=== PATIENT | female | born 1945 | race Caucasian/White ===

== ENCOUNTER 2025-02-14 21:17 | Inpatient (IN) | payer MEDICARE, SELFPAY ==
[2025-02-14 11:19] VITALS: BP 142/79
[2025-02-14 11:43] LABS: Hematocrit 42.5 % (37.0-47.0); Hemoglobin 14.2 g/dL (12.0-16.0); Mean Corp Hgb Conc. 33.4 g/dL (33.0-37.0); Mean Corpuscular Volume 91.8 fL (81.0-99.0); Nucleated Red Blood Cells % 0 %; Platelet Count 148 10^3/uL (130-400); Red Cell Dist. Width 13.8 % (11.5-14.5)
[2025-02-14 12:03] LABS: ALT (SGPT) 17 U/L (0-35); AST (SGOT) 20 U/L (14-36); Albumin 4.2 g/dl (3.5-5.0); Alkaline Phosphatase 55 U/L (38-126); Blood Urea Nitrogen 13 mg/dl (7-17); Calcium 9.2 mg/dl (8.4-10.2); Carbon Dioxide 26 mmol/L (22-30); Chloride 104 mmol/L (98-107); Glucose 139 mg/dl (70-99); Lipase 58 U/L (23-300); Potassium 4.0 mmol/L (3.5-5.1); Sodium 137 mmol/L (135-145); Total Protein 6.9 g/dl (6.3-8.2); eGFR > 60.00
[2025-02-14 14:15] VITALS: BP 116/75
[2025-02-14 15:41] VITALS: BMI 20.7
[2025-02-14] MEDS: OMNIPAQUE 50 ML PO (16:21)
[2025-02-14 18:25] VITALS: BP 133/86
[2025-02-14 18:29] LABS: Urine Character Clear (Clear)
[2025-02-14 18:34] LABS: Urine Squamous Cell 0-2 /LPF (Few)
[2025-02-14 18:35] LABS: Urine Red Blood Cell 0-2 /HPF (0-2)
--- NOTE | 2025-02-14 19:13 | ED.GENMED ---
History of Present Illness
General
Chief Complaint: Abdominal Pain
Source: patient
Exam Limitations: none
Time Seen by Provider: 02/14/25 15:22
Nursing documentation reviewed up to this point in time: agreed with
History of Present Illness
History of Present Illness:
80-year-old female presenting to the emergency department today with concerns of diffuse abdominal pain worsening over the past 24 hours or so maximal to the left side. Did have some nausea vomiting as well as diarrhea. Has had chills no fevers.
Denies any chest pain shortness of breath.
Review of Systems
Review of Systems
Allergies reviewed?: Yes
All Other Systems: ROS reviewed and negative except as documented in HPI and ROS
Phy Exam
Physical Exam
Physical Exam:
GENERAL: Alert , in no apparent distress
EYE: pupils equal and reactive
NECK: Supple, no significant adenopathy.
ENT: o/p clr, mmm.
CARDIAC: Regular rate and rhythm .
LUNGS: Clear breath sounds bilaterally, no acute respiratory distress, no wheezes/rales/rhonchi
ABDOMEN: Abdominal pain to palpation throughout the left side of the abdomen.
NEUROLOGICAL: Alert and oriented, no focal neuro deficits
SKIN: Warm and dry, skin intact.
MUSCULOSKELETAL: No edema, well perfused.
PSYCH: Normal and appropriate interaction.
Course
Orders/Labs/Results
Orders:
Orders
02/14/25 11:34
Complete Blood Count/With Diff Urgent
Comprehensive Metabolic Panel Urgent
Lipase Urgent
02/14/25 16:05
CT Abd/pel W Iv And Oral Contr Urgent
Comment:
Reason For Exam: llq pain
Iohexol [Omnipaque] See Protocol PO NOW STA
02/14/25 18:20
Urinalysis Reflex To Culture Urgent
Date Specimen was Collected: 02/14/25
Time Specimen was Collected: 18:18
Urine Microscopic Reflex Cult Urgent
Urine Culture Urgent
VENECIA Source: U
Specimen Description:
Date Specimen was Collected: 02/14/25
Time Specimen was Collected: 18:18
02/14/25 20:16
NSS 500mL Bolus over 30 minutes 0.9% Sodium Chloride 500 ml [Nss] 500 ml IV BOLUS
Zosyn 3.375 grams IVPB NOW Piperacillin/Tazo 3.375 Gram [Zosyn] 3.375 gram in 50 ml IV NOW
Abnormal Lab Results
02/14/25 02/14/25
11:34 18:20
WBC 11.0 H 10^3/uL
(4.8-10.8)
Absolute Neuts (auto) 10.3 H 10^3/uL
(1.4-6.5)
Absolute Lymphs (auto) 0.4 L 10^3/uL
(1.2-3.4)
Neutrophils % 93.3 H %
(42.2-75.2)
Lymphocytes % 3.6 L %
(20.5-51.1)
Glucose 139 H mg/dl
(70-99)
Urine Ketones 1+ A
(Negative)
Ur Occult Blood Reflex 1+ A
(Negative)
Urine Bacteria (Reflex) Many A
(Negative)
Urine Albumin (Reflex) 1+ A
(Neg - Trace)
02/14/25 11:34
02/14/25 11:34
Vital Signs
Initial and Last Documented VS:
Initial Vital Signs
Temp Pulse Resp BP Pulse Ox
99.3 F 106 16 142/79 97
02/14/25 11:19 02/14/25 11:19 02/14/25 11:19 02/14/25 11:19 02/14/25 11:19
Last Documented Vital Signs
Temp Pulse Resp BP Pulse Ox
98.7 F 85 16 133/86 96
02/14/25 19:53 02/14/25 18:25 02/14/25 18:25 02/14/25 18:25 02/14/25 19:15
MDM/Problems Addressed
MDM/Problems Addressed:
80 presenting to the emergency department today with concerns of left-sided abdominal pain worsening over the past day or so. Associated nausea diarrhea. On arrival mildly tachycardic otherwise vital signs are normal. Slight white count of 11.0
otherwise labs unremarkable. Urinalysis without evidence of infection. CT scan obtained showing contained perforation of descending colon diverticulitis. Otherwise patient here in no distress vital signs normal throughout stay plan to admit for
monitoring and IV antibiotics.
*Pulse Oximetry
SaO2: 96
Oxygen Mode of Delivery: Room air
Patient hypoxic: no (96)
*Critical Care Note
Total Time (30-74mins, 75-104mins- exclusive of procedures): Not Applicable
ED Attending Note
-
Portions of this chart may have been created with voice recognition software.� Occasional wrong word or��sound alike� substitutions may have occurred due to the inherent limitations of voice recognition software.
Discharge Plan
Departure
Patient Disposition: Home (Routine Discharge)
Date of Disposition: 02/14/25
Time of Disposition: 20:16
Admit to: Med/Surg
Admit to doctor: Debbie
Patient with high blood pressure during this ER visit?: No
Condition: Good
Covid-19: Not Applicable
Discharge Problem:
Diverticulitis of descending colon
Referrals:
NONE,* [Family Provider, Internal Medicine]
Interventions
Interventions:
*Risk Screen - Suicide Last Done: 02/14/25 11:19
*General Assessment Last Done: 02/14/25 15:46
*Neglect/Abuse Screening Last Done: 02/14/25 15:46
*ED COVID-19 Vaccine History Last Done: 02/14/25 15:46
DR-Jbmhll-Oxflczmcsv Assessment Last Done: 02/14/25 19:55
Discharge Date and Time
Print Language: KAZAKH
[2025-02-14] MEDS: ZOSYN 50 IV (20:43)
[2025-02-14] MEDS: NSS 500 IV (20:43)
--- NOTE | 2025-02-14 20:46 | HPS.HSE ---
Family Physician
-
Family Physician: * NONE
Chief Complaint
-
Abdominal pain
History of Present Illness
This is an 80-year-old female with no known segment past medical history presenting to the Emergency Department with abdominal pain.
Patient reports diffuse abdominal pain over the last 24 hours more intense on the left side without any radiation. She has nausea vomiting as well as nonbloody diarrhea. She has had chills but no fevers. She denies any rash. She denies any
urinary symptoms. She denies any cough or shortness of breath. She denies any chest pain.
In the emergency department she remains afebrile with a temp of 98.7, blood pressure was 133/80 with a pulse of 83 and she was satting 90% on room air.
White count was 11 hemoglobin 14.2 with a normal platelet count. Electrolytes BUN/creatinine were all normal. LFTs and lipase were unremarkable.
CT findings compatible with diverticulitis involving the descending colon. There is evidence for associated contained perforation with small contained foci of extraluminal air. No evidence for free intraperitoneal air underneath the hemidiaphragms.
There is no evidence for abscess.
Medical History
Past Medical History
Past Medical History: Reports None and Other
Past Surgical History: Reports Other (rectal/anal biopsy for cancer)
Social History
Tobacco: Non-smoker
Alcohol: Occasional
Drug: None
Employment: Not Employed
Family History
Family History: Not pertinent
Allergies / Home Medications
Allergies reflects when Allergies were last updated in [employer].
Home Medications with original date entered in [employer]
Allergy/Medication List:
Allergies
Allergy/AdvReac Type Severity Reaction Status Date / Time
azithromycin Allergy looses Verified 02/14/25 11:25
motor
control
Latex, Natural Rubber Allergy Rash Verified 02/14/25 11:25
environmental Allergy nasal Uncoded 02/14/25 11:25
symptoms
Review of Systems
-
Constitutional: Reports No Symptoms
EENT: Reports No Symptoms
Respiratory: Reports No Symptoms
Cardiac: Reports No Symptoms
Abdomen/GI: Reports Abdominal Pain, Nausea, Vomiting and Diarrhea
: Reports No Symptoms
Musculoskeletal: Reports No Symptoms
Skin: Reports No Symptoms
Neurological: Reports No Symptoms
Endocrine: Reports No Symptoms
Hematologic/Lymphatic: Reports No Symptoms
Psych: Reports No Symptoms
Physical Exam
Vital Signs
Vital Signs
Temp Pulse Resp BP Pulse Ox
98.7 F 85 16 133/86 96
02/14/25 19:53 02/14/25 18:25 02/14/25 18:25 02/14/25 18:25 02/14/25 19:15
Physical Exam
General: Well Developed, Well Nourished and No Apparent Distress
HEENT: NormoCephalic, Moist mucous membranes and Atraumatic
Respiratory: Clear
Cardiac: S1/S2 and Regular Rhythm; No Murmur or Rub
GI: Soft, Non Distended and Normal Bowel Sounds; No Organomegaly
Rectal: Deferred by Provider
Musculoskeletal: No Clubbing, No Cyanosis and No Edema
Skin: No Rash
Neuro: Nonfocal/grossly intact
Hematologic/Lymphatic: No Lymphadenopathy
Psych: Calm
Laboratory Results
-
02/14/25 11:34
02/14/25 11:34
Laboratory Results
Total Bilirubin 1.2 mg/dl (0.2-1.3) 02/14/25 11:34
AST 20 U/L (14-36) 02/14/25 11:34
ALT 17 U/L (0-35) 02/14/25 11:34
Alkaline Phosphatase 55 U/L (38-126) 02/14/25 11:34
Lipase 58 U/L (23-300) 02/14/25 11:34
Data Reviewed
-
CT Scan: Report Reviewed by me
Lab Data: Labs Reviewed by me
Old Records: Reviewed
Impression/Plan
-
IMPRESSION:
80-year-old female presenting with abdominal pain x 1 day and found to have complicated diverticulitis with contained perforation and abscess. No intra-abdominal free here but there is a extraluminal gas. She is hemodynamically stable and
afebrile. Abdominal exam shows nonrigid abdomen without rebound or guarding at this time.
PLAN:
Acute complicated diverticulitis of the descending colon
-Admit to MedSurg
-N.p.o.
-Pain control, antiemetics and IV fluids
-IV Zosyn
-Blood cultures afebrile
-Surgery consulted and aware will follow
DVT prophylaxis�Lovenox subcu
CODE STATUS�full code
[2025-02-14 22:42] VITALS: BP 125/76; BMI 19.9
[2025-02-14] MEDS: D5LR 1000 IV (22:49)
[2025-02-14 23:04] VITALS: BP 125/76
--- NOTE | 2025-02-14 23:26 | PTCARENOTE ---
Pt arrived from ED on stretcher at 2215, patient walked to the bed w/o assistance-gait steady. Patient updated on care plan & made aware of plan for tonight. AAOx3, follows all commands & pleasant. IV fluids started, pt made aware to call for
assistance prior to ambulating. Bed in lowest position & locked. Call murrieta within reach.
[2025-02-15] MEDS: ZOSYN 50 IV ×4 (01:18→19:43)
[2025-02-15 07:00] VITALS: BP 115/62
[2025-02-15 08:12] LABS: Hematocrit 37.6 % (37.0-47.0); Hemoglobin 12.8 g/dL (12.0-16.0); Mean Corp Hgb Conc. 34.0 g/dL (33.0-37.0); Mean Corpuscular Volume 91.0 fL (81.0-99.0); Platelet Count 132 10^3/uL (130-400); Red Cell Dist. Width 13.7 % (11.5-14.5)
[2025-02-15 08:34] LABS: Blood Urea Nitrogen 9 mg/dl (7-17); Calcium 8.6 mg/dl (8.4-10.2); Carbon Dioxide 26 mmol/L (22-30); Chloride 105 mmol/L (98-107); Estimated Creatinine Clearance 68 ml/min; Glucose 112 mg/dl (70-99); Magnesium 2.0 mg/dl (1.6-2.3); Potassium 3.7 mmol/L (3.5-5.1); Sodium 135 mmol/L (135-145); eGFR > 60.00
--- NOTE | 2025-02-15 09:41 | CON.GS ---
Addendum entered and electronically signed by Nigel De Souza MD 02/15/25 10:20:
Patient seen and examined with surgical PRODUCTION SANITIZER. Agree with documented consultation note consistent with my simultaneous evaluation.
HPI: 80-year-old female known history of diverticulosis and up-to-date on colonoscopy who developed the acute onset of left lower quadrant and suprapubic abdominal pain 2 days ago. Persistent symptoms yesterday prompting emergency department
evaluation. She resides in [place] for months at a time and just returned a few days ago but she is not aware of any specific sick contacts while there but states that she did not eat good food in the airport in [place]. She does have a previous
history of infectious enterocolitis in the past but the symptoms are different other than the diarrhea and loose stools which persist.
AFVSS
NAD AAO x 3, resting comfortably in hospital bed, pleasant and participatory for history taking
ABD: Soft, slightly distended, tenderness to palpation with localized rebound/guarding in the left lower quadrant and suprapubic area.
CT abdomen/pelvis imaging personally reviewed as well as radiologist report. There is rather significant diverticulosis affecting the sigmoid and descending colon. One of the diverticulum at the region of the distal descending colon as
inflammatory changes and a few small flecks of extraluminal air adjacent to it in the retroperitoneal tissue plane. No fluid collections. No significant free fluid. No remote extraluminal air.
Assessment/plan: 80-year-old female with descending colon diverticulitis and resultant contained localized microperforation; localized peritonitis on examination but no generalized peritonitis. No signs of sepsis.
Given clinical stability we discussed indications for nonoperative management with bowel rest, IV fluid hydration and empiric antibiotics
Clear liquids are okay for comfort
Will also check stool studies given patient's travel history
Will follow
Original Note:
Consultation
-
Date/Time Consultation Performed: 02/15/25 [id number]
Performing Provider: Phill De Souza
Medical History
-
Chief Complaint: Abdominal pain
History of Present Illness:
Ms Golden is an 80 yo female with h/o diverticulosis without prior diverticulitis and prior benign rectal biopsy with last colonoscopy about one year ago who presents with diarrhea and abdominal pain. She was recently living in [place] and returned
this week. She reports feeling quite well until about 2 days ago when she began to have abdominal pain predominantly to the lower left abdomen with nausea, vomiting and nonbloody diarrhea. She denies fevers or chills. Her symptoms persisted causing
her to present yesterday evening through the ED for evaluation. On exam, she has bllq tenderness which is worse on the left side with distention present. She continues to have loose stools but does note the nausea is resolved and the pain is
improved from last night.
Past Medical History
Past Medical History: Other (diverticulosis)
Past Surgical History: Other (last colonoscopy 1 year ago, prior benign rectal biopsy)
Social History
Tobacco: Non-Smoker
Alcohol: Occasional
Family History
Family History: Reviewed & Not Pertinent
Allergies / Home Medications
Allergy/AdvReac Type Severity Reaction Status Date / Time
azithromycin Allergy looses Verified 02/14/25 11:25
motor
control
Latex, Natural Rubber Allergy Rash Verified 02/14/25 11:25
pollen extracts Allergy ENVIRONMENTAL-NASAL Verified 02/14/25 22:01
SYMPTOMS
Review of Systems
-
History Source: Patient
All other systems: Negative unless noted
A 10 point review of systems was completed, and was negative except as per HPI.
Physical Exam
Vital Signs
Temp Pulse Resp BP Pulse Ox
98.5 F 70 17 115/62 98
02/15/25 07:00 02/15/25 07:00 02/15/25 07:00 02/15/25 07:00 02/15/25 07:00
02/14/25 02/15/25 02/16/25
06:59 06:59 06:59
Actual Weight 57.516 kg
Body Mass Index (BMI) 19.9
Lab Results
02/15/25 07:32
02/15/25 07:32
WBC 10.2 10^3/uL (4.8-10.8) 02/15/25 07:32
Hgb 12.8 g/dL (12.0-16.0) 02/15/25 07:32
Hct 37.6 % (37.0-47.0) 02/15/25 07:32
Plt Count 132 10^3/uL (130-400) 02/15/25 07:32
Abs Immat Gran (auto) 0.0 10^3/uL (0-0.05) 02/14/25 11:34
Neutrophils % 93.3 % (42.2-75.2) H 02/14/25 11:34
Physical Exam
General: Well Developed and Well Nourished
HEENT: Moist Mucous Membranes
Respiratory: Non Labored Respirations
GI: Soft, Tender (BLLQ L>R) and Distended (mild)
Skin: Warm and Dry
Neuro: Awake, Alert and AO x 3
Psych: Calm
Assessment / Plan
-
80 yo female who presents with abdominal pain and diarrhea with CT imaging with suspected diverticulitis of the descending colon with contained microperforation and no abscess, reactive small bowel inflammation noted. Localized peritonitis on exam.
This is her first diverticulitis episode. Afebrile with stable vital signs. Mild leukocytosis on presentation which has resolved. She reports pain has improved since admission.
Plan:
Clear liquids as tolerated
Continue IVF
Continue IV Zosyn
Analgesics/antiemetics prn
Given recent travel and significant diarrhea, will send stool cx. C-diff pending
Lovenox for VTE ppx
No plans for emergent surgery at this time, will follow for continued improvement with abx, bowel rest and supportive therapies
--- NOTE | 2025-02-15 12:43 | W.PN.HOSP.TC ---
Today's Communication/Plan
-
Assessment / Plan
Assessment / Plan
General: No Apparent Distress, Comfortable and Conversant
HEENT: NormoCephalic, Moist mucous membranes, Atraumatic
Respiratory: Clear and Non Labored Respirations
Cardiac: S1/S2 and Regular Rhythm; No Rub or Gallop
GI: Soft, Non Tender, Non Distended and Normal Bowel Sounds
Musculoskeletal: No Edema, no deformity
Skin: Warm and dry
: NO Llamas
Neuro: Awake, Alert, Nonfocal/grossly intact
Psych: Calm and Intact Judgment/Insight
Ms. Golden is an 80-year-old female with no significant medical history who presented with abdominal pain. She was found to have diverticulitis of her descending colon with evidence of microperforation which appears contained with no evidence of
abscess formation or free air. She was started on antibiotics with Zosyn and admitted for further evaluation and management.
Acute diverticulitis:
- With microperforation, no abscess formation or free air
- Continue antibiotics with Zosyn
- Clinically improving, remains normotensive and afebrile
- No current plans for surgical intervention
- Will monitor clinically with guidance from surgical team
- Pain control as needed
- Clear liquid diet for now
- Checking stool studies considering patient's recent travel to [place]
DVT prophylaxis: Lovenox
CODE STATUS: Full code
Total time spent on today's encounter was 45 minutes
Anticipated Discharge: > 48 hours
Subjective/Interval History
-
Date of Service: February 15, 2025
Patient was seen and examined at bedside this morning. Abdominal pain is improving. She remains on antibiotics. No current plans for surgical intervention.
Objective Data
-
Labs:
Laboratory Results
02/15/25
07:32
WBC 10.2
Hgb 12.8
Hct 37.6
Plt Count 132
Sodium 135
Potassium 3.7
Chloride 105
Carbon Dioxide 26
BUN 9
Creatinine 0.5 L
Glucose 112 H
Calcium 8.6
Vital Signs:
Vital Signs
Temp Pulse Resp BP Pulse Ox
98.5 F 70 17 115/62 98
02/15/25 07:00 02/15/25 07:00 02/15/25 07:00 02/15/25 07:00 02/15/25 07:00
Review of Systems
-
History Source: Patient
All other systems: Reviewed and negative
Abdomen/GI: Reports Abdominal Pain
Physical Exam
-
General: No Apparent Distress
[2025-02-15] MEDS: D5LR 1000 IV (15:10)
[2025-02-15 15:28] VITALS: BP 138/73
[2025-02-15] MEDS: LOVENOX 40 MG SC (18:21)
[2025-02-15 21:27] LABS: Hepatitis C Antibody Negative (Negative)
[2025-02-15 23:14] VITALS: BP 126/68
[2025-02-16] MEDS: ZOSYN 50 IV ×4 (02:49→20:15)
[2025-02-16] MEDS: D5LR 1000 IV (06:14)
[2025-02-16 07:17] VITALS: BP 136/77
--- NOTE | 2025-02-16 08:57 | W.PN.GS2 ---
Addendum entered and electronically signed by Nigel De Souza MD 02/16/25 09:14:
Patient seen and examined with surgical BEAUTY CULTURIST APPRENTICE. Agree with documented progress note.
Overall feels better than initial presentation but still with some persistent cramps and discomfort in the suprapubic and left lower quadrant.
Pain was a bit exacerbated with diarrhea overnight but she also has not utilized any pain medication including Tylenol
AFVSS
NAD AAO x 3, resting comfortably in hospital bed
ABD: Soft, nondistended, localizing tenderness palpation left lower quadrant and lower abdomen with some localized voluntary guarding
Stool studies pending (negative C. difficile no WBCs)
A.m. labs pending
Assessment/plan: Descending colon diverticulitis with contained localized microperforation
Clinically stable with no worsening pain although not significantly improved compared to yesterday
Trial on full liquid diet
Continue Zosyn
Await a.m. labs and stool culture results
Original Note:
Today's Communication / Plan
-
Full liquids
Assessment / Plan
-
80 yo female presenting with diverticulitis of the descending colon and resultant contained localized microperforation.
AFVSS
Labs for today pending, WBC normalized yesterday
Tolerating clears without increase in pain, diarrhea persists.
Stool negative for c-diff, no WBC's; other cx pending
Plan:
Advance to FLD
Follow stool cx
C/W IV zosyn
Analgesics as needed, currently declining
IVF as per primary team
Lovenox for VTE ppx
Subjective Data
-
Date of Service: February 16, 2025
Pt seen and examined at bedside with Dr. De Souza. Pain to lower pelvis and llq. Declining pain meds. Denies n/v. Tolerating clears. Passing watery, loose stools every 2 hours or so.
Objective Data
-
Intake and Output
02/15/25 02/16/25 02/17/25
06:59 06:59 06:59
Intake Total 2640 / 2640
Output Total 100 / 100
Balance 2540 / 2540
Intake:
Oral fluids 2540 / 2540
IV piggybacks 100 / 100
Output:
Liquid stool amount 100 / 100
Rectum 100 / 100
Other:
Number of approximated MODERATE 1 3
amounts of urine
Number of approximated LARGE 6
amounts of urine
Number of unmeasured liquid
stools
Rectum 1 4
Vital Signs
Temp Pulse Resp BP Pulse Ox
98.1 F 74 16 136/77 97
02/16/25 07:17 02/16/25 07:17 02/16/25 07:17 02/16/25 07:17 02/16/25 07:17
Calcium 8.6 mg/dl (8.4-10.2) 02/15/25 07:32
Magnesium 2.0 mg/dl (1.6-2.3) 02/15/25 07:32
Total Bilirubin 1.2 mg/dl (0.2-1.3) 02/14/25 11:34
AST 20 U/L (14-36) 02/14/25 11:34
ALT 17 U/L (0-35) 02/14/25 11:34
Alkaline Phosphatase 55 U/L (38-126) 02/14/25 11:34
Total Protein 6.9 g/dl (6.3-8.2) 02/14/25 11:34
Albumin 4.2 g/dl (3.5-5.0) 02/14/25 11:34
Physical Exam
-
NAD
ABD soft, tender to LLQ and suprapubic area with localized voluntary guarding, ND
--- NOTE | 2025-02-16 10:51 | CM ---
Reviewed the chart notes and spoke with the patient at the bedside. The patient is currently residing with a friend in a two story home with two steps to enter. Main residence is in [place]. The patient reports no DME/VN/SNF. The patient confirmed
pharmacy while in this area is [facility]. Patient's diet is full liquid. CM continues to be available to patient/family and is monitoring medical plan for needs at discharge.
Plan: Discharge plans will depend on the patient's progress.
[2025-02-16 11:03] LABS: Hematocrit 36.7 % (37.0-47.0); Hemoglobin 12.3 g/dL (12.0-16.0); Mean Corp Hgb Conc. 33.5 g/dL (33.0-37.0); Mean Corpuscular Volume 91.1 fL (81.0-99.0); Nucleated Red Blood Cells % 0 %; Platelet Count 135 10^3/uL (130-400); Red Cell Dist. Width 13.5 % (11.5-14.5)
[2025-02-16 11:14] LABS: Blood Urea Nitrogen 4 mg/dl (7-17); Calcium 8.9 mg/dl (8.4-10.2); Carbon Dioxide 24 mmol/L (22-30); Chloride 103 mmol/L (98-107); Estimated Creatinine Clearance 68 ml/min; Glucose 137 mg/dl (70-99); Potassium 3.4 mmol/L (3.5-5.1); Sodium 133 mmol/L (135-145); eGFR > 60.00
--- NOTE | 2025-02-16 11:46 | W.PN.HOSP.TC ---
Today's Communication/Plan
-
Assessment / Plan
Assessment / Plan
General: No Apparent Distress, Comfortable and Conversant
HEENT: NormoCephalic, Moist mucous membranes, Atraumatic
Respiratory: Clear and Non Labored Respirations
Cardiac: S1/S2 and Regular Rhythm; No Rub or Gallop
GI: Soft, mild TTP lower abdomen, Non Distended and Normal Bowel Sounds
Musculoskeletal: No Edema, no deformity
Skin: Warm and dry
: NO Llamas
Neuro: Awake, Alert, Nonfocal/grossly intact
Psych: Calm and Intact Judgment/Insight
Ms. Golden is an 80-year-old female with no significant medical history who presented with abdominal pain. She was found to have diverticulitis of her descending colon with evidence of microperforation which appears contained with no evidence of
abscess formation or free air. She was started on antibiotics with Zosyn and admitted for further evaluation and management.
Acute diverticulitis:
- With microperforation, no abscess formation or free air
- Continue antibiotics with Zosyn
- Clinically improving, remains normotensive and afebrile
- No current plans for surgical intervention
- Continues to have diarrhea, C. difficile negative, Salmonella/Shigella/Campylobacter pending
- Will monitor clinically with guidance from surgical team
- Pain control as needed
- Advance diet to full liquids this morning
- Will need eventual colonoscopy, has never had a screening colonoscopy
Hypokalemia:
- Mild with serum potassium 3.4
- Likely due to diarrhea
- Replete and continue to monitor
Hyponatremia:
- Mild with serum sodium 133, likely hypovolemic due to decreased p.o. intake and diarrhea
- Continue IV fluids
DVT prophylaxis: Lovenox
CODE STATUS: Full code
Total time spent on today's encounter was 40 minutes
Anticipated Discharge: 24 - 48 hours
Subjective/Interval History
-
Date of Service: February 16, 2025
Patient was seen and examined at bedside this morning. She continues to have lower abdominal pain although is improving. Advancing diet to full liquids this morning.
Objective Data
-
Labs:
Laboratory Results
02/16/25
10:27
WBC 8.7
Hgb 12.3
Hct 36.7 L
Plt Count 135
Sodium 133 L
Potassium 3.4 L
Chloride 103
Carbon Dioxide 24
BUN 4 L
Creatinine 0.5 L
Glucose 137 H
Calcium 8.9
Vital Signs:
Vital Signs
Temp Pulse Resp BP Pulse Ox
98.1 F 74 16 136/77 97
02/16/25 07:17 02/16/25 07:17 02/16/25 07:17 02/16/25 07:17 02/16/25 07:17
I&O
02/15/25 02/16/25 02/17/25
06:59 06:59 06:59
Intake Total 2640 / 2640
Output Total 100 / 100
Balance 2540 / 2540
Review of Systems
-
History Source: Patient
All other systems: Reviewed and negative
Abdomen/GI: Reports Abdominal Pain and Diarrhea
Physical Exam
-
General: No Apparent Distress
[2025-02-16] MEDS: KCL 270 MEQ IV (12:07)
[2025-02-16 12:08] VITALS: BMI 19.9
[2025-02-16 15:40] VITALS: BP 110/69
[2025-02-16] MEDS: LOVENOX 40 MG SC (17:37)
[2025-02-16 23:01] VITALS: BP 115/60
[2025-02-16 23:24] VITALS: BP 115/60
[2025-02-17] MEDS: ZOSYN 50 IV ×4 (02:37→20:55)
[2025-02-17] MEDS: D5LR 1000 IV (05:36)
[2025-02-17 07:23] VITALS: BP 112/69
[2025-02-17 07:30] LABS: Hematocrit 34.9 % (37.0-47.0); Hemoglobin 11.8 g/dL (12.0-16.0); Mean Corp Hgb Conc. 33.8 g/dL (33.0-37.0); Mean Corpuscular Volume 90.9 fL (81.0-99.0); Nucleated Red Blood Cells % 0 %; Platelet Count 134 10^3/uL (130-400); Red Cell Dist. Width 13.3 % (11.5-14.5)
[2025-02-17 07:53] LABS: Blood Urea Nitrogen 2 mg/dl (7-17); Calcium 8.7 mg/dl (8.4-10.2); Carbon Dioxide 28 mmol/L (22-30); Chloride 106 mmol/L (98-107); Estimated Creatinine Clearance 68 ml/min; Glucose 123 mg/dl (70-99); Potassium 3.9 mmol/L (3.5-5.1); Sodium 137 mmol/L (135-145); eGFR > 60.00
--- NOTE | 2025-02-17 08:55 | W.PN.HOSP.TC ---
Today's Communication/Plan
-
Tolerating liquids, can dc IVF
f/w surgery recommendations
Assessment / Plan
Assessment / Plan
Physical exam:
General: No Apparent Distress, Comfortable and Conversant
HEENT: NormoCephalic, Moist mucous membranes, Atraumatic
Respiratory: Clear and Non Labored Respirations
Cardiac: S1/S2 and Regular Rhythm; No Rub or Gallop
GI: Soft, mild TTP lower abdomen, Non Distended and Normal Bowel Sounds
Musculoskeletal: No Edema, no deformity
Skin: Warm and dry
: NO Llamas
Neuro: Awake, Alert, Nonfocal/grossly intact
Psych: Calm and Intact Judgment/Insight
Ms. Golden is an 80-year-old female with no significant medical history who presented with abdominal pain. She was found to have diverticulitis of her descending colon with evidence of microperforation which appears contained with no evidence of
abscess formation or free air. She was started on antibiotics with Zosyn and admitted for further evaluation and management.
Acute diverticulitis/ localized infection, not c/w sepsis :
- With microperforation, no abscess formation or free air
- Continue antibiotics with Zosyn
- Clinically improving, remains normotensive and afebrile
- No current plans for surgical intervention
- Continues to have diarrhea, C. difficile negative, Salmonella/Shigella/Campylobacter pending
- Will monitor clinically with guidance from surgical team
- Pain control as needed
- Advance diet to full liquids, she denies N/V or worsening pain
- Will need eventual colonoscopy, has never had a screening colonoscopy
Appreciate surgery help
Hypokalemia:
- Mild with serum potassium 3.4
- Likely due to diarrhea
- Replete and continue to monitor
Hyponatremia:
- Mild with serum sodium 133, likely hypovolemic due to decreased p.o. intake and diarrhea
- s/p IV fluids
DVT prophylaxis: Lovenox
CODE STATUS: Full code
Total time spent to see the patient, examine the patient, review data and lab results, discuss treatment plan with patient, nursing staff around 55 minutes
Anticipated Discharge: 24 - 48 hours
Subjective/Interval History
-
Date of Service: February 17, 2025
Less abdominal pain
She reports diarrhea
Objective Data
-
Labs:
Laboratory Results
02/17/25
07:17
WBC 5.9
Hgb 11.8 L
Hct 34.9 L
Plt Count 134
Sodium 137
Potassium 3.9
Chloride 106
Carbon Dioxide 28
BUN 2 L
Creatinine 0.5 L
Glucose 123 H
Calcium 8.7
Vital Signs:
Vital Signs
Temp Pulse Resp BP Pulse Ox
98.6 F 69 16 112/69 97
02/17/25 07:23 02/17/25 07:23 02/17/25 07:23 02/17/25 07:23 02/17/25 07:23
I&O
02/16/25 02/17/25 02/18/25
06:59 06:59 06:59
Intake Total 2640 / 2640 1874
Output Total 100 / 100
Balance 2540 / 2540 1874
[2025-02-17] MEDS: D5LR IV (09:02)
[2025-02-17] MEDS: VISBIOME 2 CAP PO (10:58)
--- NOTE | 2025-02-17 11:28 | W.PN.GS2 ---
Addendum entered and electronically signed by Warren García MD 02/17/25 16:40:
I saw and examined the patient independently.
The Senior Training Specialist's note was reviewed and I agree with the note, assessment and plan except where noted below.
Comment: This is an 80-year-old female presenting with her first episode of diverticulitis. Proving clinically.
Advance to low residue diet.
Continue Zosyn.
Dispo planning, would plan for a 2-week course of antibiotics. Patient to follow-up with Dr. De Souza.
Original Note:
Today's Communication / Plan
-
lrd
abx
Assessment / Plan
-
80 yo female presenting with diverticulitis of the descending colon and resultant contained localized microperforation.
AFVSS
No further leukoctyosis
Diarrhea improving, pain improving
Stool negative for c-diff, and ecoli. No WBC's; other cx pending
Plan:
Advance to LRD
Follow stool cx
C/W IV zosyn
Analgesics as needed, currently declining
d/c IVF
Lovenox for VTE ppx
Tentative d/c tomorrow on po abx if tolerating diet and diarrhea/pain continues to improve
Subjective Data
-
Date of Service: February 17, 2025
Pt seen and examined at bedside with Dr García. Diarrhea prior to bed but then was able to sleep through the night. Improvement in pain. Tolerating liquids
Objective Data
-
Intake and Output
02/16/25 02/17/25 02/18/25
06:59 06:59 06:59
Intake Total 2640 / 2640 1874
Output Total 100 / 100
Balance 2540 / 2540 1874
Intake:
Oral fluids 2540 / 2540 980 / 980
IV fluids (Total) 525 / 525
IV piggybacks 100 / 100 370 / 370
Output:
Liquid stool amount 100 / 100
Rectum 100 / 100
Other:
Number of approximated MODERATE 3 4
amounts of urine
Number of approximated LARGE 6
amounts of urine
Number of unmeasured liquid
stools
Rectum 4 2
Vital Signs
Temp Pulse Resp BP Pulse Ox
98.6 F 69 16 112/69 97
02/17/25 07:23 02/17/25 07:23 02/17/25 07:23 02/17/25 07:23 02/17/25 07:23
Lab Results
02/17/25 07:17
02/17/25 07:17
Calcium 8.7 mg/dl (8.4-10.2) 02/17/25 07:17
Magnesium 2.0 mg/dl (1.6-2.3) 02/15/25 07:32
Total Bilirubin 1.2 mg/dl (0.2-1.3) 02/14/25 11:34
AST 20 U/L (14-36) 02/14/25 11:34
ALT 17 U/L (0-35) 02/14/25 11:34
Alkaline Phosphatase 55 U/L (38-126) 02/14/25 11:34
Total Protein 6.9 g/dl (6.3-8.2) 02/14/25 11:34
Albumin 4.2 g/dl (3.5-5.0) 02/14/25 11:34
Physical Exam
-
NAD
ABD soft, mildly tender to LLQ and suprapubic area (improved), ND
[2025-02-17 15:48] VITALS: BP 115/68
--- NOTE | 2025-02-17 15:58 | CM ---
Reviewed the chart notes and spoke with the patient at the beside. Patient's diet advanced to low residue. IMM reviewed. CM continues to be available to patient/family and is monitoring medical plan for needs at discharge.
Plan: Discharge to home when medically stable. No needs anticipated at this time.
[2025-02-17] MEDS: LOVENOX SC (17:42)
[2025-02-17] MEDS: LOVENOX 40 MG SC (18:48)
[2025-02-17 23:13] VITALS: BP 121/69
[2025-02-18] MEDS: ZOSYN 50 IV ×2 (02:23→08:25)
[2025-02-18 07:05] VITALS: BP 130/78
--- NOTE | 2025-02-18 07:17 | W.PN.GS2 ---
Today's Communication / Plan
-
-- Abx: IV Zosyn, transition to PO antibiotics as outpatient for total of 10 days treatment
-- OK for DC from surgical perspective
Assessment / Plan
-
80 yo female presenting with diverticulitis of the descending colon and resultant contained localized microperforation.
AFVSS
Repeat labs pending
Loose stools not uncommon unexpected, likely related to resolving colonic inflammation and/or antibiotics. Stool studies and C. difficile negative. No plans for surgical intervention at this time. Okay for THC from a surgical perspective. All
questions answered.
Plan:
-- LRD
-- Abx: IV Zosyn, transition to PO antibiotics as outpatient for total of 10 days treatment
-- Pain control: Tylenol and Ibuprofen
-- DVT: Lovenox
-- OK for DC from surgical perspective
Subjective Data
-
Date of Service: February 18, 2025
Major concerns or complaints. Abdominal pain continues to improve. No nausea or vomiting. Passing looser stools and flatus. Afebrile.
Objective Data
-
Intake and Output
02/17/25 02/18/25 02/19/25
06:59 06:59 06:59
Intake Total 1874 1250 / 1250
Balance 1874 1250 / 1250
Intake:
Oral fluids 980 / 980 1020 / 1020
IV fluids (Total) 525 / 525 130 / 130
IV piggybacks 370 / 370 100 / 100
Other:
Number of approximated MODERATE 4 2
amounts of urine
Number of unmeasured liquid
stools
Rectum 2
Vital Signs
Temp Pulse Resp BP Pulse Ox
98.1 F 74 16 121/69 98
02/17/25 23:13 02/17/25 23:13 02/17/25 23:13 02/17/25 23:13 02/17/25 23:13
Calcium 8.7 mg/dl (8.4-10.2) 02/17/25 07:17
Magnesium 2.0 mg/dl (1.6-2.3) 02/15/25 07:32
Total Bilirubin 1.2 mg/dl (0.2-1.3) 02/14/25 11:34
AST 20 U/L (14-36) 02/14/25 11:34
ALT 17 U/L (0-35) 02/14/25 11:34
Alkaline Phosphatase 55 U/L (38-126) 02/14/25 11:34
Total Protein 6.9 g/dl (6.3-8.2) 02/14/25 11:34
Albumin 4.2 g/dl (3.5-5.0) 02/14/25 11:34
Physical Exam
-
Gen: NAD
Abd: soft, mild tenderness in LLQ overlying ASIS and RLQ (patient reports improved), ND, non-peritoneal
Patient has a bonilla catheter: No
Patient has a central line: No
[2025-02-18 07:53] LABS: Hematocrit 36.9 % (37.0-47.0); Hemoglobin 12.4 g/dL (12.0-16.0); Mean Corp Hgb Conc. 33.6 g/dL (33.0-37.0); Mean Corpuscular Volume 90.7 fL (81.0-99.0); Nucleated Red Blood Cells % 0 %; Platelet Count 149 10^3/uL (130-400); Red Cell Dist. Width 13.2 % (11.5-14.5)
[2025-02-18] MEDS: VISBIOME 2 CAP PO (08:24)
[2025-02-18 08:44] LABS: Blood Urea Nitrogen 7 mg/dl (7-17); Calcium 8.9 mg/dl (8.4-10.2); Carbon Dioxide 27 mmol/L (22-30); Chloride 106 mmol/L (98-107); Estimated Creatinine Clearance 68 ml/min; Glucose 100 mg/dl (70-99); Potassium 3.7 mmol/L (3.5-5.1); Sodium 138 mmol/L (135-145); eGFR > 60.00
--- NOTE | 2025-02-18 09:03 | W.PN.HOSP.TC ---
Today's Communication/Plan
-
discharge
Assessment / Plan
Assessment / Plan
Physical exam:
General: No Apparent Distress, Comfortable and Conversant
HEENT: NormoCephalic, Moist mucous membranes, Atraumatic
Respiratory: Clear and Non Labored Respirations
Cardiac: S1/S2 and Regular Rhythm; No Rub or Gallop
GI: Soft, no tenderness. Non Distended and Normal Bowel Sounds
Musculoskeletal: No Edema, no deformity
Skin: Warm and dry
: NO Llamas
Neuro: Awake, Alert, Nonfocal/grossly intact
Psych: Calm and Intact Judgment/Insight
Ms. Golden is an 80-year-old female with no significant medical history who presented with abdominal pain. She was found to have diverticulitis of her descending colon with evidence of microperforation which appears contained with no evidence of
abscess formation or free air. She was started on antibiotics with Zosyn and admitted for further evaluation and management.
Acute diverticulitis/ localized infection, not c/w sepsis :
- With microperforation, no abscess formation or free air
- s/p antibiotics with Zosyn, dc on Augmentin.
- Clinically improving, remained normotensive and afebrile
- No current plans for surgical intervention
- C. difficile negative, Salmonella/Shigella/Campylobacter negative
- Advanced diet,she denies N/V or worsening pain
- Will need eventual colonoscopy, had screening colonoscopy a year ago in [place], advised to reach out to her GI doctor to schedule a repeat in 6 weeks.
Appreciate surgery help
# Incidental finding of splenic aneurysm. Discussed with the patient. Gave her a copy of CAT scan. She will need to follow-up with her primary care doctor.
Hypokalemia:
Resolved.
Hyponatremia:
Resolved.
DVT prophylaxis: Lovenox
CODE STATUS: Full code
Total discharge time spent to see the patient, examine the patient, review data and lab results, discuss discharge plan with patient, nursing staff around 67 minutes
Anticipated Discharge: Today
Subjective/Interval History
-
Date of Service: February 18, 2025
She feels better
No abdominal pain or nausea
she tolerated diet
No diarrhea
Objective Data
-
Labs:
Laboratory Results
02/18/25
07:26
WBC 3.9 L
Hgb 12.4
Hct 36.9 L
Plt Count 149
Sodium 138
Potassium 3.7
Chloride 106
Carbon Dioxide 27
BUN 7
Creatinine 0.5 L
Glucose 100 H
Calcium 8.9
Vital Signs:
Vital Signs
Temp Pulse Resp BP Pulse Ox
98.1 F 70 20 130/78 96
02/18/25 07:05 02/18/25 07:05 02/18/25 07:05 02/18/25 07:05 02/18/25 07:05
I&O
02/17/25 02/18/25 02/19/25
06:59 06:59 06:59
Intake Total 1874 1250 / 1250
Balance 1874 1250 / 1250
--- NOTE | 2025-02-18 11:24 | CM ---
Patient seen at bedside on . Patient states that she has called for her ride, if he is unable to do so she will call uber. Patient with no needs at discharge and plan is for her to return to friends and then to her home in [place]. CM reviewed IMM
and signed form placed on chart. CM will continue to follow for discharge planning needs.
Plan; home with no needs.
[2025-02-18 11:33] VITALS: BP 118/68
--- NOTE | 2025-02-18 12:16 | W.DCSUMMARY ---
Discharge Summary
Discharge Data
Date of Admission: 02/14/25
Date of Discharge: 02/18/25
-
Pending Results: No
Hospital Course
80 years old female presented with lower abdominal pain. Patient was found to have acute diverticulitis of descending colon with contained microperforation. Patient had leukocytosis. She was evaluated by surgery. No surgical intervention needed.
She was given intravenous antibiotic and bowel rest with intravenous fluid. She improved gradually. Diet was advanced slowly with good tolerance. Patient had diarrhea, stool testing did not reveal micro. Patient reported that she had
colonoscopy a year ago with no new polyps found. Patient has reproduction specialist in [facility] where she gets her screening colonoscopies. Patient was advised to have a follow-up colonoscopy in 6 weeks, she verbalized understanding. She was
able to ambulate without discomfort. Diarrhea resolved. She remained hemodynamically stable was discharged home in a stable condition.
Discharge Plan
-
Patient Disposition: Home (Routine Discharge)
Discharge Diagnosis/Procedures: Acute diverticulitis of the descending colon and resultant contained localized microperforation.
You will need to discuss with your GI doctor the need to reschedule colonoscopy in 6 weeks
Diet: Low Residue
Additional Diets: Low residue diet for 1 week then advance to regular diet as tolerated
Referrals:
NONE,* [Family Provider, Internal Medicine]
Prescriptions:
New
acetaminophen 325 mg Tablet
650 mg PO Q4HPRN PRN (Reason: mild pain/CLAROS/temp> 100.4F) Qty: 10 0RF
amoxicillin-pot clavulanate 875-125 mg tablet
1 tab PO BID Qty: 20 0RF
Discharge Orders:
Discharge Patient (As Directed); Ordered 02/18/25
Ordered By: Frannie Bull
Discharge Date and Time
Discharge Date/Time: 02/18/25 12:09
Print Language: MALDIVIAN
== END 2025-02-18 12:09 | disposition home or self-care (01) | DRG 391 ==
LOC: 2 NORTH 21:17
PROVIDERS: Emergency Medicine; Internal Medicine; Physician Assistant; ADMITTING PHYSICIAN Internal Medicine; ATTENDING PHYSICIAN Internal Medicine; CONSULT PHYSICIAN Surgery; EMERGENCY PHYSICIAN Emergency Medicine
DX: K57.20 Diverticulitis of large intestine with perforation and abscess without bleeding (principal); K65.8 Other peritonitis; E87.1 Hypo-osmolality and hyponatremia; E87.6 Hypokalemia; T78.40XA Allergy, unspecified, initial encounter; Z88.1 Allergy status to other antibiotic agents
CPT/HCPCS: 74177; 80048; 80053; 81003; 81015; 83690; 83735; 85025; 85027; 86803; 87045; 87046; 87086; 87324; 87427; 87449; 89055; 96365; 99284; Q9967